=== PATIENT | female | born 1965 | race Caucasian/White ===

== ENCOUNTER 2017-01-31 21:48 | Inpatient (IN) | payer OTHER ==
[~2017-01-31] VITALS: Ht 170.2 cm; Wt 106.4 kg
[2017-01-31 22:50] VITALS: BP 136/80
[2017-01-31] MEDS ORDERED: FENTANYL PF 100 MCG/2 ML VIAL. IV PRN (23:30)
[2017-01-31] MEDS: IV NORMAL SALINE 1000ML BAG 1,000 ML IV SCH (23:59)
[2017-02-01] VITALS (9 sets, daily range): BP systolic 120–131; BP diastolic 65–80
[2017-02-01] MEDS: ONDANSETRON PF 4 MG/2 ML VIAL. IV PRN ×2 (00:03→08:57)
[2017-02-01] MEDS: MORPHINE SULFATE 4 MG/ML DISP.SYRIN. IV PRN ×3 (00:03→08:57)
[2017-02-01 07:11] LABS: BASO % 0 % (0-3); EOS % 0 % (0-3); HEMATOCRIT 40.5 % (36.0-47.0); HEMOGLOBIN 13.4 g/dL (12.0-15.5); LYMPH # 1.5 x10^3/uL (1.0-4.8); LYMPH % 17 % (24-48); MEAN CORPUSCULAR HEMOGLOBIN 28 pg (25-35); MEAN CORPUSCULAR HGB CONC 33 g/dL (31-37); MEAN CORPUSCULAR VOLUME 85 fL (79-100); MONO % 8 % (0-9); NEUT % 74 % (31-73); PLATELET COUNT 211 x10^3/uL (140-400); RED BLOOD COUNT 4.75 x10^6/uL (3.50-5.40); RED CELL DISTRIBUTION WIDTH 14.1 % (11.5-14.5); WHITE BLOOD COUNT 8.8 x10^3/uL (4.0-11.0)
[2017-02-01 07:21] LABS: PROTHROMBIN TIME PATIENT 12.8 SEC (11.7-14.0)
[2017-02-01 07:23] LABS: CALCIUM 8.3 mg/dL (8.5-10.1); CREATININE 0.8 mg/dL (0.6-1.0); GFR 76.2; POTASSIUM 3.9 mmol/L (3.5-5.1)
--- NOTE | 2017-02-01 08:46 | PDOC2 ---
CONSULT Date of Consult Date of Consult DATE: 02/01/17 TIME: 08:33 Reason for Consult Reason for Consult: Acute cholecystitis Referring Physician Referring Physician: Dr. Riley Source Source: Chart review, Patient History of Present Illness Reason for Visit: 51 y/o female with acute onset of epigastric pain, nausea and vomiting 01/31. Maybe colicky pain. Recalls perhaps occasional milder episodes before, but no prior knowledge of gallstones. Presented to [facility] ER where sono revealed stone in neck of gallbladder with signs of cholecystitis. Transferred here for further treatment. On sono, mildly dilated CBD, bur relatively normal LFT's. No h/o heartburn, dysphagia, PUD, liver or pancreatic disease. No tobacco use. Rare alcohol. Occasional use of OTC NSAID. More than occasional constipation with use of herbal tea. No ongoing diarrhea. Denies hematochezia or melena. Losing some weight which she attributes to stress of new business and iffy appetite also from this. No GI family history. Past Medical History Past Medical History Unremarkable. Past Surgical History Past Surgical History: (x 6), Tubal Ligation Family History Family History: Cancer (Hodgkins disease in sis and father (father subsequently had NHL)), Coronary Artery Disease (grandfather), Diabetes (maybe mom), Hypertension (dad) Social History Social History . 6 children healthy. No ALCOHOL: rare Drugs: None Lives: with Family Current Medications Current Medications Current Medications Ondansetron HCl (Zofran) 4 mg PRN Q8HRS PRN IV NAUSEA/VOMITING Last administered on 02/01/17 00:03; Start 01/31/17 at 23:30 Morphine Sulfate 4 mg 4 mg PRN Q2HR PRN IV SEVERE PAIN Last administered on 06:00; Start 01/31/17 at 23:30 Sodium Chloride (Iv Sodium Chloride 0.9% 1000ml Bag) 1,000 ml @ 80 mls/hr [id number] IV Last administered on 01/31/17 23:59; Start 01/31/17 at 23:30 Fentanyl Citrate (Fentanyl 2ml Vial) 50 mcg PRN Q2HR PRN IV SEVERE PAIN; Start 01/31/17 at 23:30 Active Scripts Active Reported [none] Allergies Allergies: Coded Allergies: No Known Drug Allergies (Unverified , 01/31/17) ROS Review of System 10-point review otherwise negative. Physical Exam General: Alert, Oriented X3, Cooperative, mild distress Lungs: Clear to auscultation Heart: Regular rate, Normal S1, Normal S2, No murmurs Abdomen: Normal bowel sounds, No hepatosplenomegaly, No masses, Other (tender RUQ) Extremities: No cyanosis, No edema Skin: No significant lesion Neuro: Normal speech, Strength at 5/5 X4 ext, Normal tone, Sensation intact, Cranial nerves 3-12 NL, Reflexes 2+ Psych/Mental Status: Mental status NL, Mood NL MUSCULOSKELETAL: No deformity, No swelling Vitals VITALS Vital Signs Date Time Temp Pulse Resp B/P Pulse Ox O2 Delivery O2 Flow Rate FiO2 02/01/17 06:30 18 Room Air 02/01/17 03:00 97.3 71 131/80 97 97.3 Labs Labs Laboratory Tests Test 02/01/17 06:15 White Blood Count 8.8x10^3/uL (4.0-11.0) Red Blood Count 4.75x10^6/uL (3.50-5.40) Hemoglobin 13.4g/dL (12.0-15.5) Hematocrit 40.5% (36.0-47.0) Mean Corpuscular Volume 85fL (79-100) Mean Corpuscular Hemoglobin 28pg (25-35) Mean Corpuscular Hemoglobin Concent 33g/dL (31-37) Red Cell Distribution Width 14.1% (11.5-14.5) Platelet Count 211x10^3/uL (140-400) Neutrophils (%) (Auto) 74% (31-73) Lymphocytes (%) (Auto) 17% (24-48) Monocytes (%) (Auto) 8% (0-9) Eosinophils (%) (Auto) 0% (0-3) Basophils (%) (Auto) 0% (0-3) Neutrophils # (Auto) 6.5x10^3uL (1.8-7.7) Lymphocytes # (Auto) 1.5x10^3/uL (1.0-4.8) Monocytes # (Auto) 0.7x10^3/uL (0.0-1.1) Eosinophils # (Auto) 0.0x10^3/uL (0.0-0.7) Basophils # (Auto) 0.0x10^3/uL (0.0-0.2) Prothrombin Time 12.8SEC (11.7-14.0) Prothromb Time International Ratio 1.0 (0.8-1.1) Sodium Level 140mmol/L (136-145) Potassium Level 3.9mmol/L (3.5-5.1) Chloride Level 103mmol/L (98-107) Carbon Dioxide Level 23mmol/L (21-32) Anion Gap 14 (6-14) Blood Urea Nitrogen 7mg/dL (7-20) Creatinine 0.8mg/dL (0.6-1.0) Estimated GFR (Cockcroft-Gault) 76.2 Glucose Level 113mg/dL (70-99) Calcium Level 8.3mg/dL (8.5-10.1) Laboratory Tests Test 02/01/17 06:15 White Blood Count 8.8x10^3/uL (4.0-11.0) Red Blood Count 4.75x10^6/uL (3.50-5.40) Hemoglobin 13.4g/dL (12.0-15.5) Hematocrit 40.5% (36.0-47.0) Mean Corpuscular Volume 85fL (79-100) Mean Corpuscular Hemoglobin 28pg (25-35) Mean Corpuscular Hemoglobin Concent 33g/dL (31-37) Red Cell Distribution Width 14.1% (11.5-14.5) Platelet Count 211x10^3/uL (140-400) Neutrophils (%) (Auto) 74% (31-73) Lymphocytes (%) (Auto) 17% (24-48) Monocytes (%) (Auto) 8% (0-9) Eosinophils (%) (Auto) 0% (0-3) Basophils (%) (Auto) 0% (0-3) Neutrophils # (Auto) 6.5x10^3uL (1.8-7.7) Lymphocytes # (Auto) 1.5x10^3/uL (1.0-4.8) Monocytes # (Auto) 0.7x10^3/uL (0.0-1.1) Eosinophils # (Auto) 0.0x10^3/uL (0.0-0.7) Basophils # (Auto) 0.0x10^3/uL (0.0-0.2) Prothrombin Time 12.8SEC (11.7-14.0) Prothromb Time International Ratio 1.0 (0.8-1.1) Sodium Level 140mmol/L (136-145) Potassium Level 3.9mmol/L (3.5-5.1) Chloride Level 103mmol/L (98-107) Carbon Dioxide Level 23mmol/L (21-32) Anion Gap 14 (6-14) Blood Urea Nitrogen 7mg/dL (7-20) Creatinine 0.8mg/dL (0.6-1.0) Estimated GFR (Cockcroft-Gault) 76.2 Glucose Level 113mg/dL (70-99) Calcium Level 8.3mg/dL (8.5-10.1) At [facility]: AST 60, other LFT"s normal. Images Images At [facility]: Large (3.1 cm) stone in neck of GB with sludge, GB distention and wall thickening. CBD 8.6 mm. Hepatic steatosis. Assessment/Plan Assessment/Plan IMP: Acute cholecystitis associated with cholelithiasis. Unclear choledocholithiasis. REC: Cholecystectomy with IOC. If CBD stone, ERCP. --other pending. Thank you for allowing me to assist in the care of this patient. Please call if questions. YONNY MOTA MD Feb 01, 2017 08:46
--- NOTE | 2017-02-01 08:48 | PDOC1 ---
History and Physical Date of Admission Date of Admission DATE: 02/01/17 TIME: 08:45 Identification/Chief Complaint Chief Complaint acute abd pain Problems: Source Source: Chart review, Patient History of Present Illness History of Present Illness I was called by [facility], pt had presented with acute abd pain, no home meds no prior history of abd pain,. Pain reported 10./10, RUQ, US done in the ER verbally reported to me as acute cholecystitis , no white count no fever, transferred here for Gen surg eval Past Medical History Cardiovascular: No pertinent hx Pulmonary: No pertinent hx GI: No pertinent hx Hepatobiliary: No pertinent hx Psych: No pertinent hx Rheumatologic: No pertinent hx Infectious disease: No pertinent hx ENT: No pertinent hx Renal/: No pertinent hx Past Surgical History Past Surgical History: (6) Family History Family History: No Significant Social History Smoke: No ALCOHOL: rare Drugs: None Current Medications Current Medications Current Medications Ondansetron HCl (Zofran) 4 mg PRN Q8HRS PRN IV NAUSEA/VOMITING Last administered on 02/01/17 00:03; Start 01/31/17 at 23:30 Morphine Sulfate 4 mg 4 mg PRN Q2HR PRN IV SEVERE PAIN Last administered on 06:00; Start 01/31/17 at 23:30 Sodium Chloride (Iv Sodium Chloride 0.9% 1000ml Bag) 1,000 ml @ 80 mls/hr [id number] IV Last administered on 01/31/17 23:59; Start 01/31/17 at 23:30 Fentanyl Citrate (Fentanyl 2ml Vial) 50 mcg PRN Q2HR PRN IV SEVERE PAIN; Start 01/31/17 at 23:30 Active Scripts Active Reported [none] Allergies Allergies: Coded Allergies: No Known Drug Allergies (Unverified , 01/31/17) ROS General: YES: Appetite, Fatigue, No: Chills, Malaise, Night Sweats, Other PSYCHOLOGICAL ROS: No: Anxiety, Behavioral Disorder, Concentration difficultie , Decreased libido, Depression, Disorientation, Hallucinations, Hostility, Irritablity, Memory difficulties, Mood Swings, Obsessive thoughts, Other, Physical abuse, Sexual abuse, Sleep disturbances, Suicidal ideation Eyes: No Blurry vision, No Decreased vision, No Double vision, No Dry eyes, No Excessive tearing, No Eye Pain, No Itchy Eyes, No Loss of vision, No Other, No Photophobia, No Scotomata, No Uses contacts, No Uses glasses HEENT: YES: Heacaches, No: Epistaxis, Hearing change, Nasal congestion, Nasal discharge, Oral lesions, Other, Sinus pain, Sneezing, Snoring, Sore Throat, Tinnitus, Vertigo, Visual Changes, Vocal changes Respiratory: No: Cough, Hemoptysis, Orthopnea, Other, Pleuritic Pain, SOB with excertion, Shortness of breath, Sputum Changes, Stridor, Tachypnea, Wheezing Cardiovascular: No Chest Pain, No Edema, No Lt Headedness, No Orthopnea, No Other, No Palpitations, No Paroxysmal Noc. Dyspnea Gastrointestinal: Yes Abdominal Pain, Yes Nausea, No Constipation, No Diarrhea, No Hematochezia, No Melena, No Other, No Vomiting Genitourinary: No , No , No , No , No , No , No , No Discharge, No Dysuria, No Flank Pain, No Frequency, No Hematuria, No Incontinence, No Other, No Pain, No Retention, No Urgency Musculoskeletal: Yes Joint Pain, No Gait Disturbance, No Joint Stiffness, No Joint Swelling, No Muscle Pain, No Muscular Weakness, No Other, No Pain In:, No Swelling In: Neurological: No Behavorial Changes, No Bowel/Bladder ControlChng, No Confusion , No Dizziness, No Gait Disturbance, No Headaches, No Impaired Coord/balance, No Memory Loss, No Numbness/Tingling, No Other, No Seizures, No Speech Problems , No Tremors, No Visual Changes, No Weakness Skin: No Acne, No Dry Skin, No Eczema, No Hair Changes, No Lumps, No Mole Changes, No Mottling, No Nail Changes, No Other, No Pruritus, No Rash, No Skin Lesion Changes Physical Exam General: Alert, Oriented X3, Cooperative, mild distress, moderate distress HEENT: Atraumatic, EOMI, Mucous membr. moist/pink Lungs: Clear to auscultation Abdomen: Other (tender, diffuse, RUq) Rectal Exam: deferred Extremities: No clubbing, No cyanosis, No edema Skin: No breakdown Neuro: Sensation intact, Cranial nerves 3-12 NL Psych/Mental Status: Mood NL Vitals Vitals Vital Signs Date Time Temp Pulse Resp B/P Pulse Ox O2 Delivery O2 Flow Rate FiO2 4/18/17 06:30 18 Room Air 02/01/17 03:00 97.3 71 131/80 97 97.3 Labs Labs Laboratory Tests Test 02/01/17 06:15 White Blood Count 8.8x10^3/uL (4.0-11.0) Red Blood Count 4.75x10^6/uL (3.50-5.40) Hemoglobin 13.4g/dL (12.0-15.5) Hematocrit 40.5% (36.0-47.0) Mean Corpuscular Volume 85fL (79-100) Mean Corpuscular Hemoglobin 28pg (25-35) Mean Corpuscular Hemoglobin Concent 33g/dL (31-37) Red Cell Distribution Width 14.1% (11.5-14.5) Platelet Count 211x10^3/uL (140-400) Neutrophils (%) (Auto) 74% (31-73) Lymphocytes (%) (Auto) 17% (24-48) Monocytes (%) (Auto) 8% (0-9) Eosinophils (%) (Auto) 0% (0-3) Basophils (%) (Auto) 0% (0-3) Neutrophils # (Auto) 6.5x10^3uL (1.8-7.7) Lymphocytes # (Auto) 1.5x10^3/uL (1.0-4.8) Monocytes # (Auto) 0.7x10^3/uL (0.0-1.1) Eosinophils # (Auto) 0.0x10^3/uL (0.0-0.7) Basophils # (Auto) 0.0x10^3/uL (0.0-0.2) Prothrombin Time 12.8SEC (11.7-14.0) Prothromb Time International Ratio 1.0 (0.8-1.1) Sodium Level 140mmol/L (136-145) Potassium Level 3.9mmol/L (3.5-5.1) Chloride Level 103mmol/L (98-107) Carbon Dioxide Level 23mmol/L (21-32) Anion Gap 14 (6-14) Blood Urea Nitrogen 7mg/dL (7-20) Creatinine 0.8mg/dL (0.6-1.0) Estimated GFR (Cockcroft-Gault) 76.2 Glucose Level 113mg/dL (70-99) Calcium Level 8.3mg/dL (8.5-10.1) Laboratory Tests Test 02/01/17 06:15 White Blood Count 8.8x10^3/uL (4.0-11.0) Red Blood Count 4.75x10^6/uL (3.50-5.40) Hemoglobin 13.4g/dL (12.0-15.5) Hematocrit 40.5% (36.0-47.0) Mean Corpuscular Volume 85fL (79-100) Mean Corpuscular Hemoglobin 28pg (25-35) Mean Corpuscular Hemoglobin Concent 33g/dL (31-37) Red Cell Distribution Width 14.1% (11.5-14.5) Platelet Count 211x10^3/uL (140-400) Neutrophils (%) (Auto) 74% (31-73) Lymphocytes (%) (Auto) 17% (24-48) Monocytes (%) (Auto) 8% (0-9) Eosinophils (%) (Auto) 0% (0-3) Basophils (%) (Auto) 0% (0-3) Neutrophils # (Auto) 6.5x10^3uL (1.8-7.7) Lymphocytes # (Auto) 1.5x10^3/uL (1.0-4.8) Monocytes # (Auto) 0.7x10^3/uL (0.0-1.1) Eosinophils # (Auto) 0.0x10^3/uL (0.0-0.7) Basophils # (Auto) 0.0x10^3/uL (0.0-0.2) Prothrombin Time 12.8SEC (11.7-14.0) Prothromb Time International Ratio 1.0 (0.8-1.1) Sodium Level 140mmol/L (136-145) Potassium Level 3.9mmol/L (3.5-5.1) Chloride Level 103mmol/L (98-107) Carbon Dioxide Level 23mmol/L (21-32) Anion Gap 14 (6-14) Blood Urea Nitrogen 7mg/dL (7-20) Creatinine 0.8mg/dL (0.6-1.0) Estimated GFR (Cockcroft-Gault) 76.2 Glucose Level 113mg/dL (70-99) Calcium Level 8.3mg/dL (8.5-10.1) Images Images US showed Large (3.1 cm) stone in neck of GB with sludge, GB distention and wall thickening. CBD 8.6 mm. Hepatic steatosis. VTE Prophylaxis Ordered VTE Prophylaxis Devices: Yes VTE Pharmacological Prophylaxi: Contraindicated Assessment/Plan Assessment/Plan Acute cholecystitis w. lithiasis consult GI and gen surg chem 12 and CBC Obese, BMI 36 KATERINA MURPHY MD Feb 01, 2017 08:47
--- NOTE | 2017-02-01 08:51 | PDOC2 ---
HARITHA COSTELLO [employer]PERVIS[employer] 02/01/17 0851: CONSULT Date of Consult Date of Consult DATE: 02/01/17 TIME: 08:47 Reason for Consult Reason for Consult: cholecystitis Referring Physician Referring Physician: ER Identification/Chief Complaint Chief Complaint abdominal pain Source Source: Chart review, Patient History of Present Illness Reason for Visit: acute onset of ruq pain with associated nausea and emesis. No radiation to her back. Aggravated by walking/movement. Pain improved since admission. Similar pain a few times, however not as severe or long lasting Past Medical History Past Medical History no pertinent hx Past Surgical History Past Surgical History: (x 6), Tubal Ligation Family History Family History: Cancer (Hodgkins disease in sis and father (father subsequently had NHL)), Coronary Artery Disease (grandfather), Diabetes (maybe mom), Hypertension (dad) Social History Social History owns a furniture store No ALCOHOL: rare Drugs: None Lives: with Family Current Medications Current Medications Current Medications Ondansetron HCl (Zofran) 4 mg PRN Q8HRS PRN IV NAUSEA/VOMITING Last administered on 02/01/17 00:03; Start 01/31/17 at 23:30 Morphine Sulfate 4 mg 4 mg PRN Q2HR PRN IV SEVERE PAIN Last administered on 06:00; Start 01/31/17 at 23:30 Sodium Chloride (Iv Sodium Chloride 0.9% 1000ml Bag) 1,000 ml @ 80 mls/hr [id number] IV Last administered on 01/31/17 23:59; Start 01/31/17 at 23:30 Fentanyl Citrate (Fentanyl 2ml Vial) 50 mcg PRN Q2HR PRN IV SEVERE PAIN; Start 01/31/17 at 23:30 Active Scripts Active Reported [none] Allergies Allergies: Coded Allergies: No Known Drug Allergies (Unverified , 01/31/17) ROS General: No: Chills, Other (fevers) PSYCHOLOGICAL ROS: No: Anxiety, Depression Eyes: No Blurry vision, No Double vision HEENT: No: Heacaches, Sore Throat Hematological and Lymphatic: No: Bleeding Problems, Blood Clots Respiratory: No: Cough, Shortness of breath Cardiovascular: No Chest Pain, No Palpitations Gastrointestinal: Yes Other (see hpi) Genitourinary: No Dysuria, No Hematuria Musculoskeletal: No Joint Pain, No Muscle Pain Neurological: No Confusion, No Numbness/Tingling Skin: No Pruritus, No Rash Physical Exam General: Alert, Oriented X3, Cooperative, No acute distress HEENT: PERRLA, Mucous membr. moist/pink Lungs: Clear to auscultation, Normal air movement Heart: Regular rate, Normal S1, Normal S2, No murmurs Abdomen: Soft, Other (ND, RUQ TTP moderate) Extremities: No clubbing, No cyanosis Skin: No rashes, No breakdown Neuro: Normal speech, Sensation intact Psych/Mental Status: Mental status NL, Mood NL MUSCULOSKELETAL: No deformity, No swelling Vitals VITALS Vital Signs Date Time Temp Pulse Resp B/P Pulse Ox O2 Delivery O2 Flow Rate FiO2 02/01/17 06:30 18 Room Air 02/01/17 03:00 97.3 71 131/80 97 97.3 Labs Labs Laboratory Tests Test 02/01/17 06:15 White Blood Count 8.8x10^3/uL (4.0-11.0) Red Blood Count 4.75x10^6/uL (3.50-5.40) Hemoglobin 13.4g/dL (12.0-15.5) Hematocrit 40.5% (36.0-47.0) Mean Corpuscular Volume 85fL (79-100) Mean Corpuscular Hemoglobin 28pg (25-35) Mean Corpuscular Hemoglobin Concent 33g/dL (31-37) Red Cell Distribution Width 14.1% (11.5-14.5) Platelet Count 211x10^3/uL (140-400) Neutrophils (%) (Auto) 74% (31-73) Lymphocytes (%) (Auto) 17% (24-48) Monocytes (%) (Auto) 8% (0-9) Eosinophils (%) (Auto) 0% (0-3) Basophils (%) (Auto) 0% (0-3) Neutrophils # (Auto) 6.5x10^3uL (1.8-7.7) Lymphocytes # (Auto) 1.5x10^3/uL (1.0-4.8) Monocytes # (Auto) 0.7x10^3/uL (0.0-1.1) Eosinophils # (Auto) 0.0x10^3/uL (0.0-0.7) Basophils # (Auto) 0.0x10^3/uL (0.0-0.2) Prothrombin Time 12.8SEC (11.7-14.0) Prothromb Time International Ratio 1.0 (0.8-1.1) Sodium Level 140mmol/L (136-145) Potassium Level 3.9mmol/L (3.5-5.1) Chloride Level 103mmol/L (98-107) Carbon Dioxide Level 23mmol/L (21-32) Anion Gap 14 (6-14) Blood Urea Nitrogen 7mg/dL (7-20) Creatinine 0.8mg/dL (0.6-1.0) Estimated GFR (Cockcroft-Gault) 76.2 Glucose Level 113mg/dL (70-99) Calcium Level 8.3mg/dL (8.5-10.1) Laboratory Tests Test 02/01/17 06:15 White Blood Count 8.8x10^3/uL (4.0-11.0) Red Blood Count 4.75x10^6/uL (3.50-5.40) Hemoglobin 13.4g/dL (12.0-15.5) Hematocrit 40.5% (36.0-47.0) Mean Corpuscular Volume 85fL (79-100) Mean Corpuscular Hemoglobin 28pg (25-35) Mean Corpuscular Hemoglobin Concent 33g/dL (31-37) Red Cell Distribution Width 14.1% (11.5-14.5) Platelet Count 211x10^3/uL (140-400) Neutrophils (%) (Auto) 74% (31-73) Lymphocytes (%) (Auto) 17% (24-48) Monocytes (%) (Auto) 8% (0-9) Eosinophils (%) (Auto) 0% (0-3) Basophils (%) (Auto) 0% (0-3) Neutrophils # (Auto) 6.5x10^3uL (1.8-7.7) Lymphocytes # (Auto) 1.5x10^3/uL (1.0-4.8) Monocytes # (Auto) 0.7x10^3/uL (0.0-1.1) Eosinophils # (Auto) 0.0x10^3/uL (0.0-0.7) Basophils # (Auto) 0.0x10^3/uL (0.0-0.2) Prothrombin Time 12.8SEC (11.7-14.0) Prothromb Time International Ratio 1.0 (0.8-1.1) Sodium Level 140mmol/L (136-145) Potassium Level 3.9mmol/L (3.5-5.1) Chloride Level 103mmol/L (98-107) Carbon Dioxide Level 23mmol/L (21-32) Anion Gap 14 (6-14) Blood Urea Nitrogen 7mg/dL (7-20) Creatinine 0.8mg/dL (0.6-1.0) Estimated GFR (Cockcroft-Gault) 76.2 Glucose Level 113mg/dL (70-99) Calcium Level 8.3mg/dL (8.5-10.1) Images Images reviewed US from [facility], cholecystitis, large stone in neck of GB, mild CBD dilation Assessment/Plan Assessment/Plan acute cholecystitis LFTs and T bili normal on admission obesity with BMI 36 plan lap willie today LINDA SELLERS MD 02/01/17 1318: CONSULT Allergies Allergies: Coded Allergies: No Known Drug Allergies (Unverified , 01/31/17) Assessment/Plan Assessment/Plan Pt seen and examined. Agree with Ms. Costello's note Pt with c/o RUQ pain TTP RUQ TO OR for lap willie with grams R/B/A d/w pt Thanks for consult! HARITHA COSTELLO APRN Feb 01, 2017 08:51 LINDA SELLERS MD Feb 01, 2017 13:18
[2017-02-01 09:14] LABS: ALBUMIN 3.6 g/dL (3.4-5.0); DIRECT BILIRUBIN 0.2 mg/dL (0.0-0.2); TOTAL BILIRUBIN 0.5 mg/dL (0.2-1.0); TOTAL PROTEIN 7.2 g/dL (6.4-8.2)
[2017-02-01] MEDS ORDERED: HEPARIN 1,000 UNIT in IV NORMAL SALINE 1,000 ML for SURG PERIOP IRR ONE (10:00)
[2017-02-01 12:08] LABS: NEG OBC UR NEG; POS OBC UR POS
[2017-02-01] MEDS ORDERED: BUPIVAC MPF-EPI 0.5%-1:200000 30 ML VIAL. ONE (13:16)
[2017-02-01] MEDS ORDERED: IOHEXOL 300 MG/ML 50 ML VIAL. ONE (13:17)
[2017-02-01] MEDS ORDERED: SURGICEL HEMOSTAT 2X3 EACH. ONE (13:17)
[2017-02-01] MEDS ORDERED: BISACODYL 10 MG SUPP.RECT. ONE (13:17)
[2017-02-01] MEDS: IV RINGERS,LACTATED 1000ML 1,000 ML IV SCH ×2 (13:31→21:20)
[2017-02-01] MEDS ORDERED: IV RINGERS,LACTATED 1000ML 1,000 ML IV SCH ×2 (13:58→16:30)
[2017-02-01] MEDS ORDERED: MORPHINE SULFATE 2 MG/ML DISP.SYRIN. IV PRN (14:00)
[2017-02-01] MEDS ORDERED: PROCHLORPERAZINE 10 MG/2 ML VIAL. IV PRN (14:00)
[2017-02-01] MEDS ORDERED: HYDROmorphone 2 MG/ML VIAL IV PRN (14:00)
[2017-02-01] MEDS ORDERED: ONDANSETRON PF 4 MG/2 ML VIAL. IV PRN ×2 (14:00→16:00)
[2017-02-01] MEDS ORDERED: FENTANYL PF 100 MCG/2 ML VIAL. IV PRN (14:00)
[2017-02-01] MEDS ORDERED: LIDOCAINE 1% 1 ML SYRINGE. ID PRN (14:00)
[2017-02-01] MEDS ORDERED: SCOPOLAMINE 1.5MG PATCH. TD ONE (14:15)
[2017-02-01] MEDS ORDERED: FENTANYL PF 100 MCG/2 ML VIAL. ONE ×2 (14:18→15:26)
[2017-02-01] MEDS ORDERED: ROCURONIUM 50 MG/5 ML VIAL. ONE (14:18)
[2017-02-01] MEDS ORDERED: ONDANSETRON PF 4 MG/2 ML VIAL. ONE (14:25)
[2017-02-01] MEDS ORDERED: PROPOFOL 20 ML IV ONE (14:25)
[2017-02-01] MEDS ORDERED: FAMOTIDINE 20 MG/2 ML VIAL ONE (14:25)
[2017-02-01] MEDS ORDERED: LIDOCAINE 2% 100 MG/5 ML SYRINGE. ONE (14:25)
[2017-02-01] MEDS ORDERED: DEXAMETHASONE SOD PHOS 20 MG/5 ML VIAL. ONE (14:25)
[2017-02-01] MEDS ORDERED: SUCCINYLCHOLINE 200 MG/10 ML VIAL. ONE (14:59)
[2017-02-01] MEDS ORDERED: SEVOFLURANE 61 TO 120 MINUTES. IH ONE (15:49)
--- NOTE | 2017-02-01 15:55 | RAD ---
Intraoperative cholangiogram,, 02/01/2017: History: Cholecystectomy 2 spot films from surgery are presented for review. Contrast has been injected into the cystic duct remnant. 0.14 minutes of fluoroscopy time was utilized. Contrast extends into the duodenum at the ampulla. The common duct is of normal caliber. No filling defect is seen in the common duct to suggest a retained calculus. The incompletely opacified intrahepatic ducts are unremarkable. IMPRESSION: No significant abnormality is detected.
[2017-02-01] MEDS ORDERED: DEXTROSE 50% 25 GM / 50ML DISP.SYRIN. IV PRN (16:00)
[2017-02-01] MEDS ORDERED: KETOROLAC TROMETHAMINE 30 MG/ML INJ. IV PRN (16:00)
[2017-02-01] MEDS ORDERED: 0.9 % SODIUM CHLORIDE 10 ML DISP.SYRIN. IV PRN (16:00)
--- NOTE | 2017-02-01 16:06 | PDOC ---
BRIEF OPERATIVE NOTE Pre-Op Diagnosis Calculous cholecystitis Post-Op Diagnosis same Procedure Performed Lap willie with grams Surgeon Francy Anesthesia Type: General, Local Blood Loss 50 IV Fluid 600 Specimens Obtained GB Findings wnl ioc Complications none Additional Remarks [id number] LINDA SELLERS MD Feb 01, 2017 16:06
[2017-02-01] MEDS ORDERED: ACETAMINOPHEN INTRAVENOUS 100 ML IV ONE ×2 (16:11→16:15)
[2017-02-01] MEDS: FENTANYL PF 100 MCG/2 ML VIAL. IV PRN ×2 (16:19→16:37)
--- NOTE | 2017-02-01 19:30 | OP ---
DATE OF SURGERY: 02/01/2017 REFERRING PHYSICIANS: Latricia Riley MD; Jameel Brennan MD. Thank you for the consult. PREOPERATIVE DIAGNOSIS: Calculous cholecystitis. POSTOPERATIVE DIAGNOSIS: Calculous cholecystitis. PROCEDURES: Laparoscopic cholecystectomy with intraoperative cholangiogram. SURGEON: Clayton Sen MD. ESTIMATED BLOOD LOSS: 50 mL. FLUIDS: 600 mL. COMPLICATIONS: None. FINDINGS: Edematous, indurated and thickened abdominal wall, normal-appearing intraoperative cholangiogram. INDICATIONS: A 51-year-old female presents with complaints of epigastric right upper quadrant abdominal pain. Imaging is concerning for calculous cholecystitis. Subsequently, it was felt patient best be served by laparoscopic cholecystectomy with intraoperative cholangiogram. The patient was informed of the risks, benefits, alternatives to procedure, risks including but not limited to bleeding, infection, damage to surrounding structures, risk of anesthesia, risk of an open procedure. The patient appears to understand and her insightful questions were answered and she agrees to proceed. DESCRIPTION OF PROCEDURE: After obtaining informed consent, the patient was taken to operating room, induced under general endotracheal anesthetic. The patient was prepped and draped in usual fashion in the anterior abdominal wall. A 0.5% Marcaine with epinephrine was injected in the supraumbilical area and incision was made using 15 blade scalpel. A 5 mm nonbladed trocar was introduced in the abdominal cavity under direct vision of laparoscope. Pneumoperitoneum was established. Additional 12 mm port was placed in the epigastrium, another 5 mm port was placed in the right upper quadrant, all under direct vision of the laparoscope. The abdominal cavity was explored. Liver was normal in appearance. The patient is obese, making the procedure somewhat difficult. Visualized portion of the viscera normal in appearance. There was no evidence of trocar injury. The gallbladder was noted to be very edematous gallbladder wall with some adhesions to it. No other pathology was identified. There were some benign adhesions in the pelvis from her previous C-sections. Gallbladder was grasped. It was noted to be very distended. Dark bile was aspirated. Large gallstone was noted in the neck of the gallbladder. The gallbladder was grasped. The triangle of Calot was exposed. The peritoneum overlying the cystic duct was taken down using blunt dissection. Circumferential dissection was performed of the cystic duct at cystic duct infundibulum junction. Critical view was obtained. This demonstrated cystic duct and cystic artery as the only structures going to the gallbladder. Clips were placed on the cystic artery and clip was placed on the cystic duct infundibulum junction. Incision was made in the cystic duct using EndoShears. Cholangiogram catheter was introduced and cholangiogram was obtained. Cholangiogram demonstrated normal appearing hepatic ducts, normal appearing common bile free extravasation into the duodenum. Cholangiogram catheter was removed. Multiple clips were placed on the cystic duct stump including Hem-o-bethany and the cystic duct was divided. Cystic artery was divided between the previously placed clips. Gallbladder was taken off the gallbladder fossa sharply using electrocautery. Gallbladder was placed in EndoCatch bag, brought out through the epigastric port and passed off the field and sent to pathology for evaluation. This did require dilatation in the epigastric port secondary to very large gallstone. The abdominal cavity was copiously irrigated with normal saline solution. There was no evidence of bleeding or bile leak at the time of closure. All ports removed under direct vision of laparoscope. There was no evidence port site bleeding. Fascial defect in the epigastric area was reapproximated using interrupted 0 Vicryl stitch using Endo Close. All skin incisions were approximated with multiple interrupted 4-0 Monocryl in subcuticular fashion. Sterile dressing was placed over all wounds. The patient tolerated procedure well and was discharged to recovery room in stable condition. All counts correct. There were no immediate complications. CLAYTON SEN MD DR: IRMA/tripp JOB#: [id number] / [id number] LATRICIA Castillo MD, MICHAEL MD
[2017-02-01] MEDS: HYDROCODONE/APAP 5/325MG TABLET. PO PRN (20:24)
[2017-02-01] MEDS: DOCUSATE SODIUM 100 MG CAPSULE. PO SCH (21:40)
[2017-02-02] MEDS: IV NORMAL SALINE 1000ML BAG 1,000 ML IV SCH (00:30)
[2017-02-02 03:15] VITALS: BP 116/65
--- NOTE | 2017-02-02 03:59 | ACF ---
Admit Criteria Forms Admit Criteria Forms Admit Criteria Forms GALLBLADDER OR BILE DUCT INFLAMMATION OR STONE Clinical Indications for Admission to Inpatient Care ( Place 'X' for any and all applicable criteria): Admission is indicated for patients with ANY ONE of the following(1)(2)(3)(4)(5) : [ ]I. Acute cholecystitis as indicated by ALL of the following: [ ]a) Right upper quadrant pain, mass, or tenderness [ ]b) Systemic signs of inflammation indicated by ANY ONE of the following: [ ]i) Fever [ ]ii) C-reactive protein level greater than 10 mg/L (95 nmol/L) [ ]iii) White blood cell count greater than 10,000/mm3 (10 x109/L) or less than 4000/mm3 (4 x109/L) [X]II. Inpatient admission required rather than observation care (Also use Gallbladder or Bile Duct Inflammation or Stone: Observation Care as appropriate) because of ANY ONE of the following: [ ]a) Common bile duct obstruction diagnosed [ ]b) Vomiting that is severe or persistent [ ]c) Severe pain requiring acute inpatient management [ ]d) Signs of intestinal obstruction or peritonitis [A] [ ]e) Severe electrolyte abnormalities requiring inpatient care [ ]f) Absent bowel sounds with complete ileus(8) [ ]g) Hemodynamic instability [ ]h) High fever or infection requiring inpatient admission as indicated by ANY ONE of the following (9): [ ]1) Appropriate outpatient or observation care antimicrobial Treatment. unavailable, not effective, or not feasible [ ]2) Temperature greater than 104.9 degrees F (40.5 degrees C) (oral) [ ]3) Temperature greater than 103.1 degrees F (39.5 degrees C) (oral) or less than 96.8 degrees F (36 degrees C) (rectal) that does not respond to all emergency treatment measures [ ]4) Documented bacteremia [ ]i) IV fluid to replace significant ongoing losses (greater than 3 L/m2 per day) [ ]j) Percutaneous or open drainage (eg, abscess, biliary tract) procedures [X]k) Immediate inpatient surgery [ ]l) Other condition, treatment or monitoring requiring inpatient admission [ ]III. Acute cholangitis as indicated by ALL of the following(9)(10): [ ]a) Systemic signs of inflammation indicated by ANY ONE of the following: [ ]i) Fever [ ]ii) C-reactive protein level greater than 10 mg/L (95 nmol /L) [ ]iii) White blood cell count greater than 10,000/mm3 (10 x109/L) or less than 4000/mm3 (4 x109/L) [ ]b) Evidence of common bile duct disease indicated by ANY ONE of the following: [ ]i) Total serum bilirubin level greater than or equal to 2 mg/dL (34 micromoles/L) [ ]ii) Liver function test (alkaline phosphatase (ALP), r- glutamyltransferase (GGT), aspartate aminotransferase (AST), or alanine aminotransferase (ALT)) greater than 1.5 times the upper limit of normal[B] [ ]iii) Hepatobiliary imaging showing biliary dilatation or evidence of etiology (eg, stricture, stone, previously placed stent) Extended stay beyond goal length of stay may be needed for (1)(2)): [ ]a) Bacteremia or Hemodynamic instability [ ]b) Cholecystectomy [ ]c) Other surgical procedure(24) [ ]d) Percutaneous or endoscopic ultrasound-guided cholecystostomy The original [facility] [employer] content created by [facility] has been revised. The portions of the content which have been revised are identified through the use of italic text or in bold, and [facility] has neither reviewed nor approved the modified material. All other unmodified content is copyright [facility] [email or web address]. Please see references footnoted in the original [facility] edition 2016 RIVER CM Feb 02, 2017 03:59
[2017-02-02 05:35] LABS: BASO % 0 % (0-3); EOS % 0 % (0-3); HEMATOCRIT 37.9 % (36.0-47.0); HEMOGLOBIN 12.9 g/dL (12.0-15.5); LYMPH # 1.4 x10^3/uL (1.0-4.8); LYMPH % 18 % (24-48); MEAN CORPUSCULAR HEMOGLOBIN 29 pg (25-35); MEAN CORPUSCULAR HGB CONC 34 g/dL (31-37); MEAN CORPUSCULAR VOLUME 83 fL (79-100); MONO % 7 % (0-9); NEUT % 74 % (31-73); PLATELET COUNT 213 x10^3/uL (140-400); RED BLOOD COUNT 4.54 x10^6/uL (3.50-5.40); RED CELL DISTRIBUTION WIDTH 14.1 % (11.5-14.5); WHITE BLOOD COUNT 7.6 x10^3/uL (4.0-11.0)
[2017-02-02 06:09] LABS: ALBUMIN 3.1 g/dL (3.4-5.0); ALBUMIN/GLOBULIN RATIO 0.7 (1.0-1.7); CALCIUM 8.7 mg/dL (8.5-10.1); CREATININE 0.7 mg/dL (0.6-1.0); GFR 88.9; POTASSIUM 3.8 mmol/L (3.5-5.1); TOTAL BILIRUBIN 0.7 mg/dL (0.2-1.0); TOTAL PROTEIN 7.3 g/dL (6.4-8.2)
[2017-02-02 07:00] VITALS: BP 125/72
[2017-02-02] MEDS: HYDROCODONE/APAP 5/325MG TABLET. PO PRN ×2 (08:59→14:01)
[2017-02-02] MEDS: DOCUSATE SODIUM 100 MG CAPSULE. PO SCH (09:00)
--- NOTE | 2017-02-02 09:31 | PDOC ---
G I PROGRESS NOTE Subjective Post-op soreness, otherwise no complaints. Physical Exam Lungs clear. RRR Abdomen with incisional tenderness. Review of Relevant I have reviewed the following items bel (where applicable) has been applied. Labs Laboratory Tests Test 02/01/17 06:15 02/01/17 11:30 02/02/17 05:15 White Blood Count 8.8x10^3/uL (4.0-11.0) 7.6x10^3/uL (4.0-11.0) Red Blood Count 4.75x10^6/uL (3.50-5.40) 4.54x10^6/uL (3.50-5.40) Hemoglobin 13.4g/dL (12.0-15.5) 12.9g/dL (12.0-15.5) Hematocrit 40.5% (36.0-47.0) 37.9% (36.0-47.0) Mean Corpuscular Volume 85fL (79-100) 83fL (79-100) Mean Corpuscular Hemoglobin 28pg (25-35) 29pg (25-35) Mean Corpuscular Hemoglobin Concent 33g/dL (31-37) 34g/dL (31-37) Red Cell Distribution Width 14.1% (11.5-14.5) 14.1% (11.5-14.5) Platelet Count 211x10^3/uL (140-400) 213x10^3/uL (140-400) Neutrophils (%) (Auto) 74% (31-73) 74% (31-73) Lymphocytes (%) (Auto) 17% (24-48) 18% (24-48) Monocytes (%) (Auto) 8% (0-9) 7% (0-9) Eosinophils (%) (Auto) 0% (0-3) 0% (0-3) Basophils (%) (Auto) 0% (0-3) 0% (0-3) Neutrophils # (Auto) 6.5x10^3uL (1.8-7.7) 5.7x10^3uL (1.8-7.7) Lymphocytes # (Auto) 1.5x10^3/uL (1.0-4.8) 1.4x10^3/uL (1.0-4.8) Monocytes # (Auto) 0.7x10^3/uL (0.0-1.1) 0.5x10^3/uL (0.0-1.1) Eosinophils # (Auto) 0.0x10^3/uL (0.0-0.7) 0.0x10^3/uL (0.0-0.7) Basophils # (Auto) 0.0x10^3/uL (0.0-0.2) 0.0x10^3/uL (0.0-0.2) Prothrombin Time 12.8SEC (11.7-14.0) Prothromb Time International Ratio 1.0 (0.8-1.1) Sodium Level 140mmol/L (136-145) 140mmol/L (136-145) Potassium Level 3.9mmol/L (3.5-5.1) 3.8mmol/L (3.5-5.1) Chloride Level 103mmol/L (98-107) 104mmol/L (98-107) Carbon Dioxide Level 23mmol/L (21-32) 26mmol/L (21-32) Anion Gap 14 (6-14) 10 (6-14) Blood Urea Nitrogen 7mg/dL (7-20) 7mg/dL (7-20) Creatinine 0.8mg/dL (0.6-1.0) 0.7mg/dL (0.6-1.0) Estimated GFR (Cockcroft-Gault) 76.2 88.9 Glucose Level 113mg/dL (70-99) 105mg/dL (70-99) Calcium Level 8.3mg/dL (8.5-10.1) 8.7mg/dL (8.5-10.1) Total Bilirubin 0.5mg/dL (0.2-1.0) 0.7mg/dL (0.2-1.0) Direct Bilirubin 0.2mg/dL (0.0-0.2) Aspartate Amino Transf (AST/SGOT) 48U/L (15-37) 140U/L (15-37) Alanine Aminotransferase (ALT/SGPT) 63U/L (14-59) 202U/L (14-59) Alkaline Phosphatase 60U/L (46-116) 70U/L (46-116) Total Protein 7.2g/dL (6.4-8.2) 7.3g/dL (6.4-8.2) Albumin 3.6g/dL (3.4-5.0) 3.1g/dL (3.4-5.0) Urine Test Negative (NEG) BUN/Creatinine Ratio 10 (6-20) Albumin/Globulin Ratio 0.7 (1.0-1.7) Laboratory Tests Test 02/01/17 11:30 02/02/17 05:15 Urine Test Negative (NEG) White Blood Count 7.6x10^3/uL (4.0-11.0) Red Blood Count 4.54x10^6/uL (3.50-5.40) Hemoglobin 12.9g/dL (12.0-15.5) Hematocrit 37.9% (36.0-47.0) Mean Corpuscular Volume 83fL (79-100) Mean Corpuscular Hemoglobin 29pg (25-35) Mean Corpuscular Hemoglobin Concent 34g/dL (31-37) Red Cell Distribution Width 14.1% (11.5-14.5) Platelet Count 213x10^3/uL (140-400) Neutrophils (%) (Auto) 74% (31-73) Lymphocytes (%) (Auto) 18% (24-48) Monocytes (%) (Auto) 7% (0-9) Eosinophils (%) (Auto) 0% (0-3) Basophils (%) (Auto) 0% (0-3) Neutrophils # (Auto) 5.7x10^3uL (1.8-7.7) Lymphocytes # (Auto) 1.4x10^3/uL (1.0-4.8) Monocytes # (Auto) 0.5x10^3/uL (0.0-1.1) Eosinophils # (Auto) 0.0x10^3/uL (0.0-0.7) Basophils # (Auto) 0.0x10^3/uL (0.0-0.2) Sodium Level 140mmol/L (136-145) Potassium Level 3.8mmol/L (3.5-5.1) Chloride Level 104mmol/L (98-107) Carbon Dioxide Level 26mmol/L (21-32) Anion Gap 10 (6-14) Blood Urea Nitrogen 7mg/dL (7-20) Creatinine 0.7mg/dL (0.6-1.0) Estimated GFR (Cockcroft-Gault) 88.9 BUN/Creatinine Ratio 10 (6-20) Glucose Level 105mg/dL (70-99) Calcium Level 8.7mg/dL (8.5-10.1) Total Bilirubin 0.7mg/dL (0.2-1.0) Aspartate Amino Transf (AST/SGOT) 140U/L (15-37) Alanine Aminotransferase (ALT/SGPT) 202U/L (14-59) Alkaline Phosphatase 70U/L (46-116) Total Protein 7.3g/dL (6.4-8.2) Albumin 3.1g/dL (3.4-5.0) Albumin/Globulin Ratio 0.7 (1.0-1.7) "Blip" in LFT"s not unexpected with ductal manipulation. Medications Current Medications Ondansetron HCl (Zofran) 4 mg PRN Q8HRS PRN IV NAUSEA/VOMITING Last administered on 02/01/17 08:57; Start 01/31/17 at 23:30; Stop 02/01/17 at 16:52 ; Status DC Morphine Sulfate 4 mg 4 mg PRN Q2HR PRN IV SEVERE PAIN Last administered on 08:57; Start 01/31/17 at 23:30 Sodium Chloride (Iv Sodium Chloride 0.9% 1000ml Bag) 1,000 ml @ 80 mls/hr [id number] IV Last administered on 01/31/17 23:59; Start 01/31/17 at 23:30 Fentanyl Citrate 50 mcg 50 mcg PRN Q2HR PRN IV SEVERE PAIN; Start 01/31/17 at 23:30 Cefazolin Sodium/ Dextrose 50 ml @ 100 mls/hr 1X PREOP IV Last administered on 02/01/17 15:24; Start 02/01/17 at 09:15 Heparin Sodium (Porcine)/Sodium Chloride (Heparin Sodium/ Iv Sodium Chloride 0.9 % 1000ml Bag) 1,001 ml @ 1,001 mls/hr 1X PERIOP ONCE IRR Last administered on 02/01/17 15:18; Start 02/01/17 at 10:00; Stop 02/01/17 at 10:59; Status DC Bupivacaine HCl/ Epinephrine Bitart (Sensorcain-Mpf Epi 0.5%-[id number]) 30 ml STK -MED ONCE .ROUTE Last administered on 02/01/17 15:18; Start 02/01/17 at 13:16 ; Stop 02/01/17 at 13:17; Status DC Iohexol (Omnipaque 300 Mg/ml) 50 ml STK-MED ONCE .ROUTE Last administered on 15:18; Start 02/01/17 at 13:17; Stop 02/01/17 at 13:18; Status DC Cellulose 1 each STK-MED ONCE .ROUTE ; Start 02/01/17 at 13:17; Stop 02/01/17 at 13:18; Status DC Bisacodyl 10 mg 10 mg STK-MED ONCE .ROUTE Last administered on 02/01/17 16:00 ; Start 02/01/17 at 13:17; Stop 02/01/17 at 13:18; Status DC Lactated Ringer's (Iv Lactated Ringers) 1,000 ml @ 125 mls/hr Q8H IV Last administered on 02/01/17 13:31; Start 02/01/17 at 13:20; Stop 02/02/17 at 01:19 ; Status DC Scopolamine (Transderm-Scop) 1 patch Q3DAYS TD ; Start 02/04/17 at 09:00; Stop 02/04/17 at 09:00; Status DC Ondansetron HCl (Zofran) 4 mg PRN Q6HRS PRN IV NAUSEA/VOMITING; Start 02/01/17 at 14:00; Stop 02/02/17 at 13:59 Fentanyl Citrate (Fentanyl 2ml Vial) 25 mcg PRN Q5MIN PRN IV MILD PAIN; Start 02/01/17 at 14:00; Stop 02/02/17 at 13:59 Fentanyl Citrate (Fentanyl 2ml Vial) 50 mcg PRN Q5MIN PRN IV MODERATE PAIN Last administered on 02/01/17 16:37; Start 02/01/17 at 14:00; Stop 02/02/17 at 13:59 Morphine Sulfate 1 mg 1 mg PRN Q10MIN PRN IV SEVERE PAIN; Start 02/01/17 at 14: 00; Stop 02/02/17 at 13:59 Lactated Ringer's (Iv Lactated Ringers) 1,000 ml @ 0 mls/hr Q0M IV ; Start at 13:58; Stop 02/01/17 at 14:05; Status DC Lidocaine HCl 2 ml PRN 1X PRN ID PRIOR TO IV START; Start 02/01/17 at 14:00; Stop 02/01/17 at 14:05; Status DC Hydromorphone HCl (Dilaudid) 0.5 mg PRN Q10MIN PRN IV SEV PAIN, Second choice; Start 02/01/17 at 14:00; Stop 02/02/17 at 13:59 Prochlorperazine Edisylate (Compazine) 5 mg PACU PRN PRN IV NAUSEA, MRX1; Start 02/01/17 at 14:00; Stop 02/02/17 at 13:59 Scopolamine (Transderm-Scop) 1 patch 1X ONCE TD Last administered on t 14:08; Start 02/01/17 at 14:15; Stop 02/01/17 at 14:16; Status DC Rocuronium [place] (Zemuron) 50 mg STK-MED ONCE .ROUTE ; Start 02/01/17 at 14:18 ; Stop 02/01/17 at 14:19; Status DC Fentanyl Citrate (Fentanyl 2ml Vial) 100 mcg STK-MED ONCE .ROUTE ; Start at 14:18; Stop 02/01/17 at 14:19; Status DC Lidocaine HCl 100 mg 100 mg STK-MED ONCE .ROUTE ; Start 02/01/17 at 14:25; Stop 02/01/17 at 14:26; Status DC Propofol (Diprivan) 20 ml @ As Directed STK-MED ONCE IV ; Start 02/01/17 at 14: 25; Stop 02/01/17 at 14:26; Status DC Dexamethasone Sodium Phosphate (Decadron) 20 mg STK-MED ONCE .ROUTE ; Start at 14:25; Stop 02/01/17 at 14:26; Status DC Famotidine (Pepcid) 20 mg STK-MED ONCE .ROUTE ; Start 02/01/17 at 14:25; Stop at 14:26; Status DC Ondansetron HCl (Zofran) 4 mg STK-MED ONCE .ROUTE ; Start 02/01/17 at 14:25; Stop 02/01/17 at 14:26; Status DC Succinylcholine Chloride (Anectine) 200 mg STK-MED ONCE .ROUTE ; Start 02/01/17 at 14:59; Stop 02/01/17 at 15:00; Status DC Fentanyl Citrate (Fentanyl 2ml Vial) 100 mcg STK-MED ONCE .ROUTE ; Start at 15:26; Stop 02/01/17 at 15:27; Status DC Sevoflurane (Ultane) 60 ml STK-MED ONCE IH ; Start 02/01/17 at 15:49; Stop 02/01 at 15:50; Status DC Sodium Chloride 3 ml 3 ml QSHIFT PRN IV AFTER MEDS AND BLOOD DRAWS; Start 02/01 at 16:00 Lactated Ringer's (Iv Lactated Ringers) 1,000 ml @ 100 mls/hr Q10H IV ; Start 02/01/17 at 16:30 Dextrose (Dextrose 50%-Water Syringe) 12.5 gm PRN Q15MIN PRN IV SEE COMMENTS; Start 02/01/17 at 16:00 Acetaminophen/ Hydrocodone Bitart (Lortab 5/325) 1 tab PRN Q4HRS PRN PO MILD PAIN Last administered on 02/02/17 08:59; Start 02/01/17 at 16:00 Ketorolac Tromethamine (Toradol) 30 mg PRN Q6HRS PRN IV PAIN Last administered on 02/02/17 09:05; Start 02/01/17 at 16:00; Stop 02/06/17 at 15:59 Docusate Sodium (Colace) 100 mg BID PO Last administered on 02/02/17 09:00; Start 02/01/17 at 21:00 Ondansetron HCl 4 mg 4 mg PRN Q6HRS PRN IV NAUESA, 1ST CHOICE; Start 02/01/17 at 16:00 Acetaminophen 100 ml @ As Directed STK-MED ONCE IV ; Start 02/01/17 at 16:11; Stop 02/01/17 at 16:12; Status DC Acetaminophen (Ofirmev) 100 ml @ 400 mls/hr 1X ONCE IV Last administered on t 16:15; Start 02/01/17 at 16:15; Stop 02/01/17 at 16:29; Status DC Active Scripts Active Reported [none] Vitals/I & O Vital Sign - Last 24 Hours 02/01/17 02/01/17 02/01/17 02/01/17 09:30 11:00 13:03 16:04 Temp 98.9 98.9 97.3 98.9 98.9 97.3 Pulse 73 73 73 Resp 16 20 20 15 B/P 131/74 136/73 140/71 Pulse Ox 95 96 96 O2 Delivery Room Air Room Air Room Air Room Air O2 Flow Rate 10 02/01/17 02/01/17 02/01/17 02/01/17 16:04 16:19 16:19 16:34 Temp 97.3 97.3 97.3 97.3 Pulse 73 73 Resp 15 15 15 B/P 126/61 120/61 Pulse Ox 99 99 99 O2 Delivery Room Air Room Air Simple Mask Simple Mask O2 Flow Rate 10.0 10.0 10.0 02/01/17 02/01/17 02/01/17 02/01/17 16:37 16:49 17:25 17:40 Temp 97.3 98.0 97.3 98.0 Pulse 66 77 72 Resp 15 15 18 B/P 116/63 127/72 124/75 Pulse Ox 99 95 93 92 O2 Delivery Simple Mask Room Air Room Air Room Air O2 Flow Rate 10.0 02/01/17 02/01/17 02/01/17 02/01/17 17:55 18:10 19:25 20:00 Temp 98.9 98.9 Pulse 70 73 79 Resp 18 B/P 129/71 122/70 120/76 Pulse Ox 94 92 95 O2 Delivery Room Air Room Air Room Air Room Air 02/01/17 02/01/17 02/01/17 02/02/17 20:24 21:24 23:28 03:15 Temp 98.7 98.6 98.7 98.6 Pulse 75 69 Resp 18 18 18 18 B/P 121/65 116/65 Pulse Ox 93 95 O2 Delivery Room Air Room Air Room Air Room Air 02/02/17 02/02/17 07:00 08:59 Temp 99.0 99.0 Pulse 80 Resp 18 16 B/P 125/72 Pulse Ox 97 O2 Delivery Room Air Room Air Intake and Output 02/01/17 02/01/17 02/02/17 15:00 23:00 07:00 Intake Total 600 ml 480 ml 480 ml Output Total 1260 ml 1600 ml Balance 600 ml -780 ml -1120 ml Images IOC read as normal. Problem List Problems Medical Problems: (1) Calculous cholecystitis Status: Acute Assessment POD#1, lap willie. Seems to be doing well. Plan of Care: Continue current Tx, Mgmt Plan of Care Note Diet, etc. per surgery. YONNY MOTA MD Feb 02, 2017 09:31
[2017-02-02 11:00] VITALS: BP 120/48
--- NOTE | 2017-02-02 12:10 | PDOC ---
SURGICAL PROGRESS NOTE Subjective tolerating diet pain control better now urinating would like to go home Vital Signs Vital Signs Date Time Temp Pulse Resp B/P Pulse Ox O2 Delivery O2 Flow Rate FiO2 02/02/17 11:00 98.3 79 18 120/48 96 Room Air 98.3 02/01/17 16:37 10.0 I&O Intake and Output 02/02/17 07:00 Intake Total 1560 ml Output Total 2860 ml Balance -1300 ml Intake Oral 960 ml IV Total 600 ml Output Urine Total 2850 ml Estimated Blood Loss 10 ml # Voids 2 General: Alert, Oriented X3, Cooperative, No acute distress Abdomen: Soft, Other (ND, incisional TTP, lap dressings dry) Labs Laboratory Tests Test 02/01/17 06:15 02/01/17 11:30 02/02/17 05:15 White Blood Count 8.8x10^3/uL (4.0-11.0) 7.6x10^3/uL (4.0-11.0) Red Blood Count 4.75x10^6/uL (3.50-5.40) 4.54x10^6/uL (3.50-5.40) Hemoglobin 13.4g/dL (12.0-15.5) 12.9g/dL (12.0-15.5) Hematocrit 40.5% (36.0-47.0) 37.9% (36.0-47.0) Mean Corpuscular Volume 85fL (79-100) 83fL (79-100) Mean Corpuscular Hemoglobin 28pg (25-35) 29pg (25-35) Mean Corpuscular Hemoglobin Concent 33g/dL (31-37) 34g/dL (31-37) Red Cell Distribution Width 14.1% (11.5-14.5) 14.1% (11.5-14.5) Platelet Count 211x10^3/uL (140-400) 213x10^3/uL (140-400) Neutrophils (%) (Auto) 74% (31-73) 74% (31-73) Lymphocytes (%) (Auto) 17% (24-48) 18% (24-48) Monocytes (%) (Auto) 8% (0-9) 7% (0-9) Eosinophils (%) (Auto) 0% (0-3) 0% (0-3) Basophils (%) (Auto) 0% (0-3) 0% (0-3) Neutrophils # (Auto) 6.5x10^3uL (1.8-7.7) 5.7x10^3uL (1.8-7.7) Lymphocytes # (Auto) 1.5x10^3/uL (1.0-4.8) 1.4x10^3/uL (1.0-4.8) Monocytes # (Auto) 0.7x10^3/uL (0.0-1.1) 0.5x10^3/uL (0.0-1.1) Eosinophils # (Auto) 0.0x10^3/uL (0.0-0.7) 0.0x10^3/uL (0.0-0.7) Basophils # (Auto) 0.0x10^3/uL (0.0-0.2) 0.0x10^3/uL (0.0-0.2) Prothrombin Time 12.8SEC (11.7-14.0) Prothromb Time International Ratio 1.0 (0.8-1.1) Sodium Level 140mmol/L (136-145) 140mmol/L (136-145) Potassium Level 3.9mmol/L (3.5-5.1) 3.8mmol/L (3.5-5.1) Chloride Level 103mmol/L (98-107) 104mmol/L (98-107) Carbon Dioxide Level 23mmol/L (21-32) 26mmol/L (21-32) Anion Gap 14 (6-14) 10 (6-14) Blood Urea Nitrogen 7mg/dL (7-20) 7mg/dL (7-20) Creatinine 0.8mg/dL (0.6-1.0) 0.7mg/dL (0.6-1.0) Estimated GFR (Cockcroft-Gault) 76.2 88.9 Glucose Level 113mg/dL (70-99) 105mg/dL (70-99) Calcium Level 8.3mg/dL (8.5-10.1) 8.7mg/dL (8.5-10.1) Total Bilirubin 0.5mg/dL (0.2-1.0) 0.7mg/dL (0.2-1.0) Direct Bilirubin 0.2mg/dL (0.0-0.2) Aspartate Amino Transf (AST/SGOT) 48U/L (15-37) 140U/L (15-37) Alanine Aminotransferase (ALT/SGPT) 63U/L (14-59) 202U/L (14-59) Alkaline Phosphatase 60U/L (46-116) 70U/L (46-116) Total Protein 7.2g/dL (6.4-8.2) 7.3g/dL (6.4-8.2) Albumin 3.6g/dL (3.4-5.0) 3.1g/dL (3.4-5.0) Urine Test Negative (NEG) BUN/Creatinine Ratio 10 (6-20) Albumin/Globulin Ratio 0.7 (1.0-1.7) Laboratory Tests Test 02/02/17 05:15 White Blood Count 7.6x10^3/uL (4.0-11.0) Red Blood Count 4.54x10^6/uL (3.50-5.40) Hemoglobin 12.9g/dL (12.0-15.5) Hematocrit 37.9% (36.0-47.0) Mean Corpuscular Volume 83fL (79-100) Mean Corpuscular Hemoglobin 29pg (25-35) Mean Corpuscular Hemoglobin Concent 34g/dL (31-37) Red Cell Distribution Width 14.1% (11.5-14.5) Platelet Count 213x10^3/uL (140-400) Neutrophils (%) (Auto) 74% (31-73) Lymphocytes (%) (Auto) 18% (24-48) Monocytes (%) (Auto) 7% (0-9) Eosinophils (%) (Auto) 0% (0-3) Basophils (%) (Auto) 0% (0-3) Neutrophils # (Auto) 5.7x10^3uL (1.8-7.7) Lymphocytes # (Auto) 1.4x10^3/uL (1.0-4.8) Monocytes # (Auto) 0.5x10^3/uL (0.0-1.1) Eosinophils # (Auto) 0.0x10^3/uL (0.0-0.7) Basophils # (Auto) 0.0x10^3/uL (0.0-0.2) Sodium Level 140mmol/L (136-145) Potassium Level 3.8mmol/L (3.5-5.1) Chloride Level 104mmol/L (98-107) Carbon Dioxide Level 26mmol/L (21-32) Anion Gap 10 (6-14) Blood Urea Nitrogen 7mg/dL (7-20) Creatinine 0.7mg/dL (0.6-1.0) Estimated GFR (Cockcroft-Gault) 88.9 BUN/Creatinine Ratio 10 (6-20) Glucose Level 105mg/dL (70-99) Calcium Level 8.7mg/dL (8.5-10.1) Total Bilirubin 0.7mg/dL (0.2-1.0) Aspartate Amino Transf (AST/SGOT) 140U/L (15-37) Alanine Aminotransferase (ALT/SGPT) 202U/L (14-59) Alkaline Phosphatase 70U/L (46-116) Total Protein 7.3g/dL (6.4-8.2) Albumin 3.1g/dL (3.4-5.0) Albumin/Globulin Ratio 0.7 (1.0-1.7) Problem List Problems Medical Problems: (1) Calculous cholecystitis Status: Acute Assessment/Plan s/p lap willie, transaminitis postop, normal T bili, normal IOC probable home after lunch Problems: HARITHA COSTELLO [employer] DOWN HEL[employer] Feb 02, 2017 12:10
[2017-02-02] MEDS ORDERED: HYDR-2666 PO (13:12)
[2017-02-02] MEDS ORDERED: DOCU100C5 PO (13:12)
--- NOTE | 2017-02-02 15:31 | PDOC3 ---
Discharge Summary Visit Information Date of Admission: Feb 01, 2017 Date of Discharge: Feb 02, 2017 Admitting Diagnosis: acute abd pain Final Diagnosis Problems Medical Problems: (1) Calculous cholecystitis Status: Acute Brief Hospital Course Allergies Allergies Coded Allergies Type Severity Reaction Last Updated Verified No Known Drug Allergies 01/31/17 No Vital Signs Vital Signs Date Time Temp Pulse Resp B/P Pulse Ox O2 Delivery O2 Flow Rate FiO2 02/02/17 14:01 16 Room Air 02/02/17 11:00 98.3 79 120/48 96 98.3 02/01/17 16:37 10.0 Lab Results Laboratory Tests Test 02/01/17 06:15 02/01/17 11:30 02/02/17 05:15 White Blood Count 8.8x10^3/uL (4.0-11.0) 7.6x10^3/uL (4.0-11.0) Red Blood Count 4.75x10^6/uL (3.50-5.40) 4.54x10^6/uL (3.50-5.40) Hemoglobin 13.4g/dL (12.0-15.5) 12.9g/dL (12.0-15.5) Hematocrit 40.5% (36.0-47.0) 37.9% (36.0-47.0) Mean Corpuscular Volume 85fL (79-100) 83fL (79-100) Mean Corpuscular Hemoglobin 28pg (25-35) 29pg (25-35) Mean Corpuscular Hemoglobin Concent 33g/dL (31-37) 34g/dL (31-37) Red Cell Distribution Width 14.1% (11.5-14.5) 14.1% (11.5-14.5) Platelet Count 211x10^3/uL (140-400) 213x10^3/uL (140-400) Neutrophils (%) (Auto) 74% (31-73) 74% (31-73) Lymphocytes (%) (Auto) 17% (24-48) 18% (24-48) Monocytes (%) (Auto) 8% (0-9) 7% (0-9) Eosinophils (%) (Auto) 0% (0-3) 0% (0-3) Basophils (%) (Auto) 0% (0-3) 0% (0-3) Neutrophils # (Auto) 6.5x10^3uL (1.8-7.7) 5.7x10^3uL (1.8-7.7) Lymphocytes # (Auto) 1.5x10^3/uL (1.0-4.8) 1.4x10^3/uL (1.0-4.8) Monocytes # (Auto) 0.7x10^3/uL (0.0-1.1) 0.5x10^3/uL (0.0-1.1) Eosinophils # (Auto) 0.0x10^3/uL (0.0-0.7) 0.0x10^3/uL (0.0-0.7) Basophils # (Auto) 0.0x10^3/uL (0.0-0.2) 0.0x10^3/uL (0.0-0.2) Prothrombin Time 12.8SEC (11.7-14.0) Prothromb Time International Ratio 1.0 (0.8-1.1) Sodium Level 140mmol/L (136-145) 140mmol/L (136-145) Potassium Level 3.9mmol/L (3.5-5.1) 3.8mmol/L (3.5-5.1) Chloride Level 103mmol/L (98-107) 104mmol/L (98-107) Carbon Dioxide Level 23mmol/L (21-32) 26mmol/L (21-32) Anion Gap 14 (6-14) 10 (6-14) Blood Urea Nitrogen 7mg/dL (7-20) 7mg/dL (7-20) Creatinine 0.8mg/dL (0.6-1.0) 0.7mg/dL (0.6-1.0) Estimated GFR (Cockcroft-Gault) 76.2 88.9 Glucose Level 113mg/dL (70-99) 105mg/dL (70-99) Calcium Level 8.3mg/dL (8.5-10.1) 8.7mg/dL (8.5-10.1) Total Bilirubin 0.5mg/dL (0.2-1.0) 0.7mg/dL (0.2-1.0) Direct Bilirubin 0.2mg/dL (0.0-0.2) Aspartate Amino Transf (AST/SGOT) 48U/L (15-37) 140U/L (15-37) Alanine Aminotransferase (ALT/SGPT) 63U/L (14-59) 202U/L (14-59) Alkaline Phosphatase 60U/L (46-116) 70U/L (46-116) Total Protein 7.2g/dL (6.4-8.2) 7.3g/dL (6.4-8.2) Albumin 3.6g/dL (3.4-5.0) 3.1g/dL (3.4-5.0) Urine Test Negative (NEG) BUN/Creatinine Ratio 10 (6-20) Albumin/Globulin Ratio 0.7 (1.0-1.7) Laboratory Tests Test 02/02/17 05:15 White Blood Count 7.6x10^3/uL (4.0-11.0) Red Blood Count 4.54x10^6/uL (3.50-5.40) Hemoglobin 12.9g/dL (12.0-15.5) Hematocrit 37.9% (36.0-47.0) Mean Corpuscular Volume 83fL (79-100) Mean Corpuscular Hemoglobin 29pg (25-35) Mean Corpuscular Hemoglobin Concent 34g/dL (31-37) Red Cell Distribution Width 14.1% (11.5-14.5) Platelet Count 213x10^3/uL (140-400) Neutrophils (%) (Auto) 74% (31-73) Lymphocytes (%) (Auto) 18% (24-48) Monocytes (%) (Auto) 7% (0-9) Eosinophils (%) (Auto) 0% (0-3) Basophils (%) (Auto) 0% (0-3) Neutrophils # (Auto) 5.7x10^3uL (1.8-7.7) Lymphocytes # (Auto) 1.4x10^3/uL (1.0-4.8) Monocytes # (Auto) 0.5x10^3/uL (0.0-1.1) Eosinophils # (Auto) 0.0x10^3/uL (0.0-0.7) Basophils # (Auto) 0.0x10^3/uL (0.0-0.2) Sodium Level 140mmol/L (136-145) Potassium Level 3.8mmol/L (3.5-5.1) Chloride Level 104mmol/L (98-107) Carbon Dioxide Level 26mmol/L (21-32) Anion Gap 10 (6-14) Blood Urea Nitrogen 7mg/dL (7-20) Creatinine 0.7mg/dL (0.6-1.0) Estimated GFR (Cockcroft-Gault) 88.9 BUN/Creatinine Ratio 10 (6-20) Glucose Level 105mg/dL (70-99) Calcium Level 8.7mg/dL (8.5-10.1) Total Bilirubin 0.7mg/dL (0.2-1.0) Aspartate Amino Transf (AST/SGOT) 140U/L (15-37) Alanine Aminotransferase (ALT/SGPT) 202U/L (14-59) Alkaline Phosphatase 70U/L (46-116) Total Protein 7.3g/dL (6.4-8.2) Albumin 3.1g/dL (3.4-5.0) Albumin/Globulin Ratio 0.7 (1.0-1.7) Brief Hospital Course Ms. Carr is a 51 old female, transfer from [place], acute abd pain, RUQ pain, acute willie on US, labs OK /18 lap willie, transaminitis postop, normal T bili, normal IOC some ongoing pain, min nausea pt felt well and wanted DC home Discharge Information Condition at Discharge: Improved Follow Up: Weeks Disposition/Orders: D/C to Home Scheduled Hydrocodone Bit/Acetaminophen (Hydrocodone-Apap 5-325 ) 1 TAB PO PRN Q4HRS Scheduled PRN Docusate Sodium (Docusate Sodium) 100 MG PO BID PRN PRN CONSTIPATION Miscellaneous Medications ([none]) (Reported) Patient Instructions Patient Instructions time > 30 min KATERINA MURPHY MD Feb 02, 2017 15:31
--- NOTE | 2017-02-03 13:50 | PATHOLOGY ---
PATHOLOGY REPORT * * * * * * * * FINAL DIAGNOSIS: Gallbladder, cholecystectomy: - Chronic cholecystitis. - Cholelithiasis. (MATTHEWM:; d/t: 02/03/17) REPORT ELECTRONICALLY SIGNED BY: Malcom Mcdonough M.D. DATE/TIME: 02/03/2017 13:49 * * * * * * * * GROSS PATHOLOGY: Received in formalin labeled "Moriah Carr, gallbladder and contents," is a 12.1 x 4.4 x 4.4 cm, intact gallbladder with pink-benoit serosal surfaces. Opening the gallbladder reveals a velvety, light beckett mucosa and an average wall thickness of 0.1 cm. A single large light beckett multinodular calculus is present, and no masses are noted grossly. Machine Operator Helper sections from the body and fundus are submitted along with the proximal margin in cassette A1. (CAA; 02/02/2017) INITIAL CPT CODE(S): A; 81113 Professional services performed [place] [address] Technical services performed by [facility] at [address] [place] [address]. SPECIMEN(S) RECEIVED: A.Gallbladder and contents CLINICAL HISTORY: Cholecystitis PATIENT: MORIAH CARR /AGE: 907/04/1965 (Age: 51) PATIENT #: [id number] ALT CASE #: SPECIMEN COLLECTION DATE: 02/01/2017 SPECIMEN RECEIVED DATE: 02/02/2017 [facility] - [address] [place] [address] - PHONE: [phone] * * * END OF REPORT * * *
[2017-02-04] MEDS ORDERED: SCOPOLAMINE 1.5MG PATCH. TD SCH (09:00)
== END 2017-02-02 14:35 | disposition home or self-care (01) | DRG 419 ==
LOC: 4 NORTH 23:05
PROVIDERS: ADMIT Internal Medicine; ATTEND Internal Medicine
PROC: BF101ZZ Fluoroscopy of Bile Ducts using Low Osmolar Contrast (ICD-10-PCS; 2017-02-01)
PROC: 0FT44ZZ Resection of Gallbladder, Percutaneous Endoscopic Approach (ICD-10-PCS; principal; 2017-02-01 14:30)
DX: K80.00 Calculus of gallbladder with acute cholecystitis without obstruction (principal); E66.9 Obesity, unspecified; K59.00 Constipation, unspecified; N73.6 Female pelvic peritoneal adhesions (postinfective); Z68.36 Body mass index [BMI] 36.0-36.9, adult; Z80.7 Family history of other malignant neoplasms of lymphoid, hematopoietic and related tissues; Z82.49 Family history of ischemic heart disease and other diseases of the circulatory system; Z83.3 Family history of diabetes mellitus; Z98.51 Tubal ligation status; K76.0 Fatty (change of) liver, not elsewhere classified
CPT/HCPCS: 36415; 74300; 80048; 80053; 80076; 81025; 85027; 85610; 88304; C1782; J0131; J0330; J0690; J1100; J1885; J2270; J2405; J2704; J3010; J3490; J7030; J7120; Q9967; S0028

== ENCOUNTER → 2019-02-06 | Day surgery (SDC) | payer OTHER ==
[~2019-02-06] MED LIST: DOCU100C28 PO; HYDR-2761 PO; LIDOCAINE 1%/EPI 1:100,000 20 ML VIAL. INJ ONE
--- NOTE | 2019-02-06 12:13 | PDOC4 ---
Operative Note Operative Note Date: 02/06/2019 Preoperative diagnosis: Forehead mass Postoperative diagnosis: Same Procedure: Excision of forehead mass Surgeon: Silverio Specimen: Forehead mass Dictation: Patient is a 53-year-old female is complained of a enlarging mass over 4 head for approximately 9 months. Procedure of excision of mass was explained to the patient detail risk benefits were also discussed including bleeding infection alternatives to this procedure also discussed with patient who seemed to understand gave both verbal and written consent to have the procedure performed. Patient was taken to the [facility] room placed in the supine position her 4 head was prepped and draped usual sterile fashion using ChloraPrep and area around the mass was injected with 1% lidocaine with epinephrine once this was anesthetized incision was made with 15 blade scalpel over the masses carried down through the subcutaneous tissues the mass was excised sharply with Metzenbaum scissors and sent for pathology the wound was closed in a single layer of 4-0 subcuticular Monocryl and dressed with 4 x 4's. Patient tolerated procedure well was discharged home in stable condition all sponge instrument needle counts listed as correct estimate blood loss less than 5 mL JACLYN CASILLAS MD Feb 06, 2019 12:13
[2019-02-06 12:25] VITALS: BP 123/79
--- NOTE | 2019-02-07 18:06 | PATHOLOGY ---
[facility] Accession Number: [id number] . 01 Material submitted: . forehead - FOREHEAD MASS . 02 Diagnosis: Fibroadipose tissue, forehead mass excision: - Focal fibrosis, calcification, and foreign body giant cell reaction. (JPM:field artillery targeting technician; 02/07/2019) MBR/02/07/2019 . 02 Comment: There is no cyst identified. There is no evidence of malignancy. (JPM:field artillery targeting technician; 02/07/2019) . 02 Electronically signed: . Silviano Ling MD, Pathologist NPI- [id number] . 01 Gross description: . The specimen is received in formalin, labeled "Coon, Moriah, forehead mass" and consists of a segment of pink white tissue with attached yellow lobulated tissue measuring 0.8 x 0.7 x 0.4 cm. It is bisected and entirely submitted in A1. (SDY; 02/06/2019) SYU/SYU . 02 Pathologist provided ICD-10: L90.5 . 02 CPT . 510236 Specimen Comment: A courtesy copy of this report has been sent to Specimen Comment: [phone], . Specimen Comment: Report sent to DR CASILLAS / DR EDEN Specimen Comment: A duplicate report has been generated due to demographic updates. Performed at: 01 [facility] [address] [facility] [address], [place] [id number] MD Jamie Waller MD Phone: [phone] Performed at: 02 [facility] [address] [place], [place] [id number] MD Silviano Ling MD Phone: [phone]
== END | disposition home or self-care (01) ==
LOC: SURG 10:59
PROVIDERS: ATTEND Surgery
DX: L90.5 Scar conditions and fibrosis of skin (principal); Z90.49 Acquired absence of other specified parts of digestive tract; Z98.890 Other specified postprocedural states
CPT/HCPCS: 11441; 88305; J3490